=== PATIENT | female | born 2000 | race Two or more races ===

== ENCOUNTER 2019-05-28 00:07 | Emergency (ER) | payer OTHER ==
[~2019-05-28] VITALS: Ht 165.1 cm; Wt 59.0 kg
[2019-05-28] MEDS ORDERED: RITALIN20 MG (00:46)
[2019-05-28] MEDS ORDERED: KAITLIB FE CHE1 EACH (00:46)
[2019-05-28] MEDS ORDERED: CYMBALTA20 MG (00:47)
== END 2019-05-28 11:28 | disposition home or self-care (01) ==
LOC: ER 00:07 → EDBD 00:07 → ER 00:14
DX: T14.91XA Suicide attempt, initial encounter (principal); T43.632A Poisoning by methylphenidate, intentional self-harm, initial encounter; R11.11 Vomiting without nausea; Y92.89 Other specified places as the place of occurrence of the external cause

== ENCOUNTER 2021-02-01 18:23 | Emergency (ER) | payer OTHER ==
[~2021-02-01] VITALS: Ht 165.1 cm; Wt 63.5 kg
[~2021-02-01 18:23] MED LIST: CYMBALTA20 MG; KAITLIB FE CHE1 EACH; RITALIN20 MG
[2021-02-01] MEDS ORDERED: PRILOSEC OTC20 MG (18:35)
[2021-02-01] MEDS ORDERED: MIRENA1 EACH (18:36)
== END 2021-02-01 22:11 | disposition home or self-care (01) ==
LOC: ER 18:23
DX: R55 Syncope and collapse (principal); Z11.52 Encounter for screening for COVID-19